=== PATIENT | female | born 1995 | race Caucasian/White ===

== ENCOUNTER 2020-05-26 12:11 | Emergency (ER) | payer SELFPAY ==
[~2020-05-26] VITALS: Ht 162.6 cm; Wt 60.0 kg
[2020-05-26 12:20] VITALS: BP 123/69
== END 2020-05-26 14:17 | disposition left against medical advice (07) ==
LOC: ER 12:11
DX: T40.601A Poisoning by unspecified narcotics, accidental (unintentional), initial encounter (principal); J45.901 Unspecified asthma with (acute) exacerbation; Y92.9 Unspecified place or not applicable
CPT/HCPCS: 99283